=== PATIENT | female | born 1990 | race Two or more races ===

== ENCOUNTER 2021-01-22 05:48 | Emergency (ER) | payer BC, MEDICAID ==
[~2021-01-22] VITALS: Ht 165.1 cm; Wt 100.5 kg
[2021-01-22] MEDS ORDERED: IBUPROFEN 200 MG TABLET ONE (06:09)
[2021-01-22] MEDS ORDERED: IBUPROFEN 200 MG TABLET PO ONE (06:30)
--- NOTE | 2021-01-22 06:32 | NUR ---
PT TO IMAGING
--- NOTE | 2021-01-22 06:48 | NUR ---
BEDSIDE REPORT TO ETHAN MCARTHUR
--- NOTE | 2021-01-22 06:55 | NUR ---
ASSUMED CARE OF PT
--- NOTE | 2021-01-22 07:36 | NUR ---
Dr. Mota bedside
[2021-01-22 07:58] VITALS: BP 128/78
== END 2021-01-22 08:00 | disposition home or self-care (01) ==
LOC: ED 07:46
DX: S46.812A Strain of other muscles, fascia and tendons at shoulder and upper arm level, left arm, initial encounter (principal); M79.89 Other specified soft tissue disorders; X58.XXXA Exposure to other specified factors, initial encounter; Y93.89 Activity, other specified; Y92.89 Other specified places as the place of occurrence of the external cause; Y99.8 Other external cause status
CPT/HCPCS: 99283

== ENCOUNTER 2021-05-13 08:24 | Emergency (ER) | payer BC, OTHER ==
[~2021-05-13] VITALS: Ht 157.5 cm; Wt 98.6 kg
--- NOTE | 2021-05-13 08:46 | NUR ---
PA AT BS
[2021-05-13] MEDS ORDERED: KETOROLAC 30 MG/1 ML ONE (08:49)
--- NOTE | 2021-05-13 08:54 | NUR ---
PT MEDICATED PER EMAR, NADN/VSS. CALL LIGHT WITHIN REACH.
--- NOTE | 2021-05-13 08:58 | NUR ---
PT AMBULATORY TO XRAY
[2021-05-13] MEDS ORDERED: KETOROLAC 30 MG/1 ML IM ONE (09:00)
--- NOTE | 2021-05-13 09:16 | NUR ---
ERP AT BS FOR EVAL
[2021-05-13 09:52] VITALS: BP 117/69
--- NOTE | 2021-05-13 10:27 | NUR ---
Patient given discharge instructions and rx, they have confirmed that they understand the instructions. Patient ambulatory with steady gait.
== END 2021-05-13 10:30 | disposition home or self-care (01) ==
LOC: ED 10:15
DX: M77.8 Other enthesopathies, not elsewhere classified (principal); R20.2 Paresthesia of skin
CPT/HCPCS: 29125; 72050; 96372; 99283; J1885

== ENCOUNTER 2021-05-19 15:40 | Emergency (ER) | payer BC, OTHER ==
[~2021-05-19] VITALS: Ht 154.9 cm; Wt 98.3 kg
[2021-05-19 16:05] VITALS: BP 142/84
--- NOTE | 2021-05-19 16:06 | NUR ---
NO ANSWER FROM [facility]
[2021-05-19] MEDS ORDERED: ASPIRIN 81 MG TABLET CHEW PO ONE (16:30)
[2021-05-19 17:15] LABS: ALBUMIN 3.9 g/dL (3.4-5.0); ANION GAP 7 mmol/L (5-15); BASOPHILS % (AUTO) 1 % (0-1); CALCIUM 9.1 mg/dL (8.5-10.1); CHLORIDE 106 mmol/L (98-107); EOSINOPHILS % (AUTO) 2 % (1-7); LYMPHOCYTES % (AUTO) 31 % (22-44); MEAN CORPUSCULAR HEMOGLOBIN 29.1 pg (27.0-34.8); MEAN CORPUSCULAR HGB CONC 33.7 g/dL (32.4-35.8); MEAN PLATELET VOLUME 8.8 fL (7.4-10.4); MONOCYTES % (AUTO) 6 % (2-9); NEUTROPHILS % (AUTO) 61 % (42-75); PLATELET COUNT 284 x10^3/uL (130-400); RED BLOOD COUNT 4.83 x10^6/uL (3.82-5.3); RED CELL DISTRIBUTION WIDTH 13.4 % (9.6-15.2)
[2021-05-19 17:21] LABS: ALANINE AMINOTRANSFERASE 69 U/L (12-78); ALKALINE PHOSPHATASE 94 U/L (45-117); BILIRUBIN,TOTAL 0.3 mg/dL (0.2-1.0); CREATININE 0.98 mg/dL (0.55-1.02); TOTAL PROTEIN 8.4 g/dL (6.4-8.2); TROPONIN I < 0.015 ng/mL (0.000-0.045)
[2021-05-19] MEDS ORDERED: ASPIRIN 81 MG TABLET CHEW ONE (17:37)
--- NOTE | 2021-05-19 17:45 | NUR ---
PT CAME IN CO CHEST PAIN THAT SRATED EARLIR TODAY WHILE SHOPPING. PT STATES IT RADIATED DOWN HER LEFT ARM. EKG COMPLETE. MEDICATED PER DEC. CONNECTED TO ALL MONTIORS
== END 2021-05-19 18:46 | disposition home or self-care (01) ==
LOC: ED 18:00
DX: R07.2 Precordial pain (principal); M79.18 Myalgia, other site
CPT/HCPCS: 36415; 71045; 80053; 84484; 84703; 85025; 93005; 99285